=== PATIENT | male | born 1950 ===

== ENCOUNTER 2024-05-17 11:15 | Inpatient (IN) | payer OTHER ==
[~2024-05-17] VITALS: Ht 167.6 cm; Wt 79.4 kg
[2024-05-17 12:55] LABS: URINE APPEARANCE Clear; URINE BILIRRUBIN Negative (NEGATIVE); URINE BLOOD Negative; URINE COLOR Yellow; URINE KETONE Negative (NEGATIVE); URINE LEUKOCYTE Negative; URINE NITRATE Negative; URINE PROTEIN Negative (NEGATIVE)
[2024-05-17 12:59] LABS: URINE EPITHELIAL CELLS 2.9 uL (0.0-38.8); URINE RBC 16.6 uL (0.0-20.8); URINE WBC 6.1 uL (0.0-23.2)
[2024-05-17 13:02] LABS: HEMATOCRIT 40.2 % (39.0-48.0); HEMOGLOBIN 12.8 g/dL (13-16.00); MEAN CELL VOLUME 70.2 fL (80.0-100.00); MEAN CORPUSCULAR HEMOGLOBIN 22.4 pg (27.00-32.0); PLATELET COUNT 469 K/uL (150-450); RED BLOOD COUNT 5.72 M/uL (4.00-6.00); RED CELL DISTRIBUTION WIDTH 23.2 % (11.5-14.5)
[2024-05-17 13:10] LABS: URINE CAST 0.15 uL (0.0-1.40); URINE GLUCOSE >=1000 MG/DL (NEGATIVE)
[2024-05-17 13:14] LABS: INR 1.02; PARTIAL THROMBOPLASTIN TIME 30.4 SECONDS (22.0-34.0); PROTHROMBIN TIME 10.7 SECONDS (9.0-11.5)
[2024-05-17 13:51] LABS: ALBUMIN 3.7 gm/dL (3.4-5.0); BILIRUBIN TOTAL 0.27 mg/dL (0.3-1.2); CALCIUM 9.5 mg/dL (8.5-10.1); CREATININE SERUM 0.76 mg/dL (0.70-1.30); GFR 99.98; GLOBULINA 4.3 G/DL (2.4-3.5); PHOSPHOROUS 4.1 mg/dL (2.5-4.9); POTASSIUM 5.16 mEq/L (3.5-5.1)
[2024-05-17] MEDS ORDERED: LEVOTHYROXINE25 MCG PO (16:43)
[2024-05-17] MEDS ORDERED: LANTUS SOL100 UNIT/1 (16:43)
[2024-05-17] MEDS ORDERED: TRINATAL RX 11 EACH PO (16:44)
[2024-05-17] MEDS ORDERED: ROSUVASTATIN CA20 MG PO (16:44)
[2024-05-17] MEDS ORDERED: FERROCITE324 MG PO (16:44)
[2024-05-17] MEDS ORDERED: CENTRUM ADULTS1 EACH PO (16:45)
[2024-05-21] MEDS ORDERED: CEFTRIAXONE SODIUM 2,000 MG VIAL ONE (10:50)
[2024-05-21] MEDS ORDERED: METRONIDAZOLE/SODIUM CHLORIDE 500 MG/100 ML PIGGYBACK IV ONE (10:50)
[2024-05-21] MEDS ORDERED: RINGERS SOLUTION,LACTATED 1,000 ML IV SCH (12:45)
[2024-05-21] MEDS ORDERED: DEXTROSE 50 % IN WATER 0.5 G/ML DISP.SYRIN IV PRN ×2 (12:45→15:30)
[2024-05-21] MEDS ORDERED: ONDANSETRON HCL 2 MG/ML VIAL IV PRN (12:45)
[2024-05-21] MEDS ORDERED: MORPHINE SULFATE 4 MG/ML CARTRIDGE IV PRN (12:45)
[2024-05-21] MEDS ORDERED: OxyCODONE HCL 5 MG TABLET (ROXICODONE) PO PRN (12:45)
[2024-05-21] MEDS ORDERED: HYOSCYAMINE SULFATE 0.125 MG TAB.SUBL SL SCH (13:00)
[2024-05-21] MEDS ORDERED: ACETAMINOPHEN 500 MG GEL..CAP PO SCH (14:00)
[2024-05-21] MEDS ORDERED: ENALAPRILAT DIHYDRATE 2.5 MG/2 ML VIAL IV PRN (15:30)
[2024-05-21] MEDS ORDERED: INSULIN LISPRO 1,000 UNIT/10 ML UNITS SUBCUTANEO PRN (15:30)
[2024-05-21 16:13] LABS: HEMOGLOBIN 12.9 g/dL (13-16.00); MEAN CORPUSCULAR HEMOGLOBIN 23.2 pg (27.00-32.0); MEAN CORPUSCULAR HGB CONC 32.2 g/dl (32.0-36.0); PLATELET COUNT 403 K/uL (150-450); RED BLOOD COUNT 5.56 M/uL (4.00-6.00); RED CELL DISTRIBUTION WIDTH 22.7 % (11.5-14.5)
[2024-05-21] MEDS ORDERED: POLYETHYLENE GLYCOL 3350 17 GM BLIST.PACK PO SCH (17:00)
[2024-05-21] MEDS ORDERED: GABAPENTIN 300 MG CAPSULE PO SCH (17:00)
[2024-05-21] MEDS ORDERED: GABAPENTIN 300 MG CAPSULE PO ONE (19:05)
[2024-05-21 20:17] LABS: ALBUMIN 3.5 gm/dL (3.4-5.0); CALCIUM 8.9 mg/dL (8.5-10.1); CREATININE SERUM 0.65 mg/dL (0.70-1.30); GFR 119.75; MAGNESIUM 1.9 mg/dL (1.8-2.4); PHOSPHOROUS 3.7 mg/dL (2.5-4.9); POTASSIUM 4.84 mEq/L (3.5-5.1)
[2024-05-21] MEDS ORDERED: FAMOTIDINE/PF 20 MG/2 ML VIAL IV PUSH SCH (21:00)
[2024-05-22] MEDS ORDERED: LEVOTHYROXINE SODIUM 25 MCG TABLET PO ONE (04:50)
[2024-05-22] MEDS ORDERED: LEVOTHYROXINE SODIUM 25 MCG TABLET PO SCH (06:00)
[2024-05-22 06:36] LABS: HEMATOCRIT 38.9 % (39.0-48.0); HEMOGLOBIN 12.7 g/dL (13-16.00); MEAN CORPUSCULAR HEMOGLOBIN 23.5 pg (27.00-32.0); MEAN CORPUSCULAR HGB CONC 32.7 g/dl (32.0-36.0); PLATELET COUNT 414 K/uL (150-450); RED CELL DISTRIBUTION WIDTH 22.5 % (11.5-14.5)
[2024-05-22 07:23] LABS: CALCIUM 8.8 mg/dL (8.5-10.1); CREATININE SERUM 0.65 mg/dL (0.70-1.30); GFR 119.75; MAGNESIUM 2.2 mg/dL (1.8-2.4); PHOSPHOROUS 3.5 mg/dL (2.5-4.9); POTASSIUM 5.05 mEq/L (3.5-5.1)
[2024-05-22] MEDS ORDERED: ENOXAPARIN SODIUM 40 MG/0.4 ML SYRINGE SUBCUTANEO SCH (17:00)
[2024-05-23] MEDS ORDERED: ENOXAPARIN SODIUM 40 MG/0.4 ML SYRINGE SUBCUTANEO SCH (09:00)
[2024-05-23] MEDS ORDERED: HYOSCYAMINE0.125 M2 PO (14:09)
[2024-05-23] MEDS ORDERED: NEURONTIN300 MG PO ×2 (14:09→14:25)
== END 2024-05-23 15:32 | disposition home or self-care (01) | DRG 331 ==
LOC: O/R 05-21 06:31 → SURG 05-21 06:31 → SURH 05-21 11:15 → SURG 05-21 13:57 → SURH 05-22 17:06
PROVIDERS: ADMIT Surgery; ATTEND Surgery
PROC: 0DBP4ZZ Excision of Rectum, Percutaneous Endoscopic Approach (ICD-10-PCS; 2024-05-21)
PROC: 07BC4ZZ Excision of Pelvis Lymphatic, Percutaneous Endoscopic Approach (ICD-10-PCS; 2024-05-21)
PROC: 0DJD8ZZ Inspection of Lower Intestinal Tract, Via Natural or Artificial Opening Endoscopic (ICD-10-PCS; 2024-05-21)
PROC: 0DTN4ZZ Resection of Sigmoid Colon, Percutaneous Endoscopic Approach (ICD-10-PCS; principal; 2024-05-21 13:00)
DX: C19 Malignant neoplasm of rectosigmoid junction (principal); K57.30 Diverticulosis of large intestine without perforation or abscess without bleeding; R59.0 Localized enlarged lymph nodes; E03.9 Hypothyroidism, unspecified; E11.9 Type 2 diabetes mellitus without complications